=== PATIENT | male | born 2000 | race African-American/Black ===

== ENCOUNTER 2025-06-21 00:47 | Emergency (ER) | payer MEDICAID, OTHER ==
[~2025-06-21] VITALS: Ht 170.2 cm; Wt 73.0 kg
[2025-06-21 00:51] VITALS: O2SAT 100
[2025-06-21 02:33] LABS: BASOPHILS % 0.4 % (0.0-2.0); EOSINOPHILS % 0.4 % (0.0-5.0); HEMATOCRIT. 46.8 % (42.0-52.0); HEMOGLOBIN. 15.6 g/dL (14.0-18.0); LYMPHOCYTES % 31.8 % (20.0-50.0); MEAN PLATELET VOLUME 8.6 fl (7.4-10.4); MONOCYTES % 10.2 % (2.0-8.0); NEUTROPHILS % 57.2 % (40.0-76.0); PLATELET 228 x1000/uL (130-400); RED BLOOD CELL COUNT 4.99 mill/uL (4.7-6.1); RED CELL DISTRIBUTION WIDTH 12.5 % (11.6-14.6)
[2025-06-21] MEDS: KETOROLAC 15MG/ML VIAL IM ONE (02:50)
[2025-06-21 02:51] LABS: CREATININE 1.0 mg/dL (0.6-1.3); UREA NITROGEN BLOOD 7 mg/dL (9-23)
[2025-06-21 02:52] LABS: TROPONIN I HIGH SENSITIVITY < 4 ng/L (3.0-53)
[2025-06-21 04:15] VITALS: BP 142/98; PULSE 70; RESP 16; TEMP 36.8; O2SAT 100
== END 2025-06-21 04:15 | disposition home or self-care (01) ==
LOC: ER 00:47 → CMPBEDREQ 18:40
DX: I45.10 Unspecified right bundle-branch block (principal); R07.89 Other chest pain; F17.200 Nicotine dependence, unspecified, uncomplicated; I10 Essential (primary) hypertension; Z90.49 Acquired absence of other specified parts of digestive tract
CPT/HCPCS: 80048; 80320; 85025; 84484; 36415; 71045; 93005; 96372; 99285; J1885; G0480